=== PATIENT | female | born 1955 | race American Indian/Alaskan Native ===

== ENCOUNTER 2017-08-12 00:33 | Emergency (ER) | payer OTHER ==
[2017-08-12] MEDS ORDERED: TYLENOL ONE (02:45)
[2017-08-12] MEDS ORDERED: TYLENOL PO ONE (02:54)
--- NOTE | 2017-08-12 11:06 | Emergency Department Report ---
- General Chief Complaint: Upper Respiratory Infection Stated Complaint: FLU-LIKE SX Time Seen by Provider: 08/12/17 11:01 Source: patient Mode of arrival: Ambulatory Limitations: No Limitations - History of Present Illness Initial Comments: Patient states when U -[place] female presents with flulike symptoms 2 days patient states head congestion postnasal drip denies shortness of breath no fever no nausea no vomiting no chest pain since and worse at night when lying down states mild fever for last 2 days, pt is currently tolerating po intake is without n/v/d MD Complaint: fever, cough, rhinorrhea, nasal congestion, sinus pain Onset/Timin -: week(s) Severity: moderate Severity scale (0 -10): 4 Quality: aching Consistency: intermittent Improves With: nothing Worsens With: activity Context: sick contacts Associated Symptoms: fever, rhinorrhea, nasal congestion, cough. denies: shortness of breath, nausea, vomiting, diarrhea, dysuria, rash, confusion, right sweats, weight loss, ear pain - Related Data Home Medications Medication Instructions Recorded Confirmed Last Taken Carvedilol [Coreg] 3.125 mg PO BID 10/20/15 10/20/15 10/19/15 Losartan/Hydrochlorothiazide 1 each PO QDAY 10/20/15 10/20/15 10/19/15 [Hyzaar 100-12.5 TAB] Simvastatin [Zocor TAB] 20 mg PO QHS 10/20/15 10/20/15 10/19/15 amLODIPine [Norvasc] 5 mg PO DAILY 10/20/15 10/20/15 10/19/15 Previous Rx's Medication Instructions Recorded Last Taken Type Aspirin EC [Aspirin Enteric Coated 81 mg PO QDAY #30 tablet.dr 10/21/15 Unknown Rx TAB] Acetaminophen 1,000 mg PO QID PRN #30 tablet 08/12/17 Unknown Rx Azithromycin [Zithromax Z-DEANA] 250 mg PO DAILY #6 tab 08/12/17 Unknown Rx Benzonatate [Tessalon Perles] 100 mg PO Q8HR #30 capsule 08/12/17 Unknown Rx Allergies Allergy/AdvReac Type Severity Reaction Status Date / Time No Known Allergies Allergy Unverified 10/20/15 14:34 ED Review of Systems ROS: Stated complaint: FLU-LIKE SX Other details as noted in HPI Constitutional: fever ENT: ear pain, throat pain, congestion. denies: dental pain, hearing loss Respiratory: cough. denies: shortness of breath, SOB with exertion, wheezing Cardiovascular: denies: chest pain, palpitations Endocrine: no symptoms reported Gastrointestinal: denies: abdominal pain, nausea, diarrhea Genitourinary: denies: urgency, dysuria, discharge Musculoskeletal: denies: back pain, joint swelling, arthralgia Skin: denies: rash, lesions Neurological: denies: headache, weakness, paresthesias Psychiatric: denies: anxiety, depression Hematological/Lymphatic: denies: easy bleeding, easy bruising ED Past Medical Hx - Past Medical History Previous Medical History?: Yes Hx Hypertension: Yes Hx Heart Attack/AMI: No Hx Congestive Heart Failure: No Hx Diabetes: No Hx Deep Vein Thrombosis: No Hx Asthma: No Hx COPD: No Hx Tuberculosis: No Hx HIV: No - Surgical History Past Surgical History?: No Hx Coronary Stent: No Hx Pacemaker: No Hx Internal Defibrillator: No - Social History Smoking Status: Never Smoker Substance Use Type: None - Medications Home Medications: Home Medications Medication Instructions Recorded Confirmed Last Taken Type Carvedilol [Coreg] 3.125 mg PO BID 10/20/15 10/20/15 10/19/15 History Losartan/Hydrochlorothiazide 1 each PO QDAY 10/20/15 10/20/15 10/19/15 History [Hyzaar 100-12.5 TAB] Simvastatin [Zocor TAB] 20 mg PO QHS 10/20/15 10/20/15 10/19/15 History amLODIPine [Norvasc] 5 mg PO DAILY 10/20/15 10/20/15 10/19/15 History Aspirin EC [Aspirin Enteric Coated 81 mg PO QDAY #30 tablet.dr 10/21/15 Unknown Rx TAB] Acetaminophen 1,000 mg PO QID PRN #30 tablet 08/12/17 Unknown Rx Azithromycin [Zithromax Z-DEANA] 250 mg PO DAILY #6 tab 08/12/17 Unknown Rx Benzonatate [Tessalon Perles] 100 mg PO Q8HR #30 capsule 08/12/17 Unknown Rx ED Physical Exam - General Limitations: No Limitations General appearance: alert, in no apparent distress - Head Head exam: Present: atraumatic, normocephalic - Eye Eye exam: Present: normal appearance, PERRL, EOMI Pupils: Present: normal accommodation - ENT ENT exam: Present: mucous membranes moist - Expanded ENT Exam Expanded Ear exam: Present: auricular hematoma TM/Canal exam: Erythema: Right TM, Left TM, Canal Tenderness: Right TM, Left TM Mouth exam: Absent: trismus, tongue normal Throat exam: Positive: tonsillar erythema. Negative: tonsillomegaly, tonsillar exudate, R peritonsillar mass, L peritonsillar mass - Neck Neck exam: Present: full ROM. Absent: tenderness, lymphadenopathy, thyromegaly - Respiratory Respiratory exam: Present: normal lung sounds bilaterally. Absent: respiratory distress, wheezes, rhonchi, stridor, chest wall tenderness - Cardiovascular Cardiovascular Exam: Present: regular rate, normal rhythm. Absent: systolic murmur, diastolic murmur, rubs, gallop - GI/Abdominal GI/Abdominal exam: Present: soft, normal bowel sounds - Rectal Rectal exam: Present: deferred - Extremities Exam Extremities exam: Present: normal inspection - Back Exam Back exam: Present: normal inspection. Absent: full ROM, tenderness, CVA tenderness (R), CVA tenderness (L) - Neurological Exam Neurological exam: Present: alert, oriented X3, CN II-XII intact, normal gait, reflexes normal - Psychiatric Psychiatric exam: Present: normal affect, normal mood - Skin Skin exam: Present: warm ED Course Vital Signs 08/12/17 08/12/17 08/12/17 00:47 02:20 02:56 Temperature 102.1 F H 102.7 F H Pulse Rate 104 H 104 H Respiratory 20 20 18 Rate Blood Pressure 148/77 148/77 O2 Sat by Pulse 96 96 Oximetry ED Medical Decision Making - Medical Decision Making Patient states when U -[place] female presents with flulike symptoms 2 days patient states head congestion postnasal drip denies shortness of breath no fever no nausea no vomiting no chest pain since and worse at night when lying down states mild fever for last 2 days, pt is currently tolerating po intake is without n/v/d , exam: patient appears well nontoxic no hx of chf or cad, pt denies sob pt refuses cxr, tm: mild erythema pain with movement nose: bilat turbinate erythema edema clear post nasal drip, mild sinus tenderness to palpation no swelling no edema, pharynx: mild erythema no exudate no lesions no stridor lungs clear no wheezing sob no n/v/d pt refuses cxr to r/o pnuemonia , vitals are improved with tylenol, discussed importance of cxr as diagnostic for CAP pt still refuses same, given symptoms, age, risks for influenza, current symptoms head congestion only no sob no wheezing no however intermittent fever will tx with azithromycin, tylenol, tessalon for cough pt given strict instruction to return to ed if symptoms worsen. pt verbalized agreement and understanding of same. Critical care attestation.: If time is entered above; I have spent that time in minutes in the direct care of this critically ill patient, excluding procedure time. ED Disposition Clinical Impression: URI (upper respiratory infection) Qualifiers: URI type: unspecified viral URI Qualified Code(s): J06.9 - Acute upper respiratory infection, unspecified Disposition: TO HOME OR SELFCARE Is pt being admited?: No Does the pt Need Aspirin: No Condition: Stable Instructions: Upper Respiratory Infection (ED) Prescriptions: Acetaminophen 1,000 mg PO QID PRN #30 tablet PRN Reason: pain fever Azithromycin [Zithromax Z-DEANA] 250 mg PO DAILY #6 tab Benzonatate [Tessalon Perles] 100 mg PO Q8HR #30 capsule Referrals: ROSA PINON MD [Primary Care Provider] - 3-5 Days Forms: Work/School Release Form(ED) Time of Disposition: 11:15
[2017-08-12 11:26] VITALS: BP 126/83
== END 2017-08-12 11:30 | disposition home or self-care (01) ==
LOC: ED 00:33
DX: J06.9 Acute upper respiratory infection, unspecified (principal); I10 Essential (primary) hypertension
CPT/HCPCS: 99282